=== PATIENT | male | born 1985 | race African-American/Black ===

== ENCOUNTER 2025-04-07 10:55 | Emergency (ER) | payer MEDICAID ==
[~2025-04-07] VITALS: Ht 190.5 cm; Wt 86.0 kg
[2025-04-07] MEDS: ONDANSETRON 4MG ODT PO ONE (11:30)
[2025-04-07 11:39] LABS: BASOPHILS % 1.2 % (0.0-2.0); EOSINOPHILS % 5.6 % (0.0-5.0); HEMATOCRIT. 46.2 % (42.0-52.0); HEMOGLOBIN. 15.4 g/dL (14.0-18.0); LYMPHOCYTES % 45.6 % (20.0-50.0); MEAN PLATELET VOLUME 7.8 fl (7.4-10.4); MONOCYTES % 11.2 % (2.0-8.0); NEUTROPHILS % 36.4 % (40.0-76.0); PLATELET 190 x1000/uL (130-400); RED BLOOD CELL COUNT 4.98 mill/uL (4.7-6.1); RED CELL DISTRIBUTION WIDTH 13.0 % (11.6-14.6)
[2025-04-07 11:59] LABS: CREATININE 1.2 mg/dL (0.6-1.3); PROTEIN TOTAL 7.4 g/dL (6.0-8.3); UREA NITROGEN BLOOD 10 mg/dL (9-23)
[2025-04-07 12:00] LABS: TROPONIN I HIGH SENSITIVITY < 4 ng/L (3.0-53)
[2025-04-07 12:01] LABS: ASPARTATE AMINOTRANSFERASE 26 IU/L (<34); BILIRUBIN TOTAL 0.9 mg/dL (0.1-1.0)
[2025-04-07 13:15] VITALS: PULSE 80; RESP 12; O2SAT 92
[2025-04-07] MEDS: ALBUTEROL (0.5%) 2.5MG/0.5ML NEB HHN ONE (13:32)
[2025-04-07] MEDS ORDERED: BENZ100C86 MT (14:10)
[2025-04-07 14:26] VITALS: BP 138/90; PULSE 80; RESP 16; TEMP 36.9; O2SAT 99
== END 2025-04-07 14:15 | disposition home or self-care (01) ==
LOC: ER 10:55
DX: B34.9 Viral infection, unspecified (principal)
CPT/HCPCS: 80053; 85025; 84484; 36415; 71045; 94640; 93005; 99285; Z7610 ×3; Q0162